=== PATIENT | female | born 1960 | race African-American/Black ===

== ENCOUNTER → 2022-05-06 15:29 | Outpatient (BNVA) | payer MEDICAID, SELFPAY | PROVIDERS: PCP Internal Medicine; Visit Provider Urology | DX: R35.1 Nocturia (principal); R39.14 Feeling of incomplete bladder emptying | CPT/HCPCS: 51798; 99202 ==

== ENCOUNTER → 2023-05-09 11:16 | Outpatient (REF) | payer OTHER, SELFPAY ==
--- NOTE | ~2023-05-09 | NM_ITS ---
EXAMINATION: BONE SCAN OF THE MID LUMBAR SPINE TO THE KNEES: CLINICAL INFORMATION: Status post fall 2021. Evaluate for acute fracture at the sacrococcygeal junction. COMPARISON: No previous bone scan or radiographs are available for comparison. TECHNIQUE: Multiple gamma scintillation camera images of the mid thoracic spine to the knees in multiple projections were performed 2.5 hours following the intravenous administration of 30 mCi Tc-99m MDP. FINDINGS: Visualized lumbar and mid to lower thoracic spine: There is a focus of mildly increased activity present in the right posterior elements at L5/S1 probably due to facet arthropathy. There is very minimally increased activity in the L4 vertebral body. No other abnormalities in the visualized spine are present. In the pelvis: No significant abnormalities are present. The sacrum and coccyx appear unremarkable with no abnormal foci of increased activity. Visualized lower extremities: There is a small focus of mildly increased activity in the right greater femoral trochanter, probably due to an enthesopathy. There is moderately increased activity diffusely in both patellae. The urinary bladder and faint visualization of both kidneys are noted. NM/NM bone scan limited area IMPRESSION: No abnormality in the posterior pelvis, in particular the sacrum or coccyx, is present. A few nonspecific abnormalities are noted as described above and these are all likely arthritic or traumatic in etiology. None of these abnormalities is strongly suspicious for metastatic disease. The most severe abnormalities are in the patellae bilaterally.
== END ==
LOC: HO.NUCMED 11:16
PROVIDERS: PCP Internal Medicine; Visit Provider Nurse Practitioner Family
DX: M53.3 Sacrococcygeal disorders, not elsewhere classified (principal)
CPT/HCPCS: 78300; A9503